=== PATIENT | male | born 1970 | race Caucasian/White ===

== ENCOUNTER 2018-08-10 12:47 | Emergency (ER) | payer OTHER ==
[~2018-08-10] VITALS: Ht 190.5 cm; Wt 113.4 kg
[~2018-08-10 12:47] MED LIST: IBUPROFEN 600600 M1 PO
[2018-08-10] MEDS ORDERED: NABUMETONE 750750 M1 PO (14:29)
[2018-08-10 15:04] VITALS: BP 144/84
== END 2018-08-10 15:05 | disposition home or self-care (01) ==
LOC: M.ERS 12:47
DX: S62.396A Other fracture of fifth metacarpal bone, right hand, initial encounter for closed fracture (principal); X58.XXXA Exposure to other specified factors, initial encounter; Y93.89 Activity, other specified; Y92.89 Other specified places as the place of occurrence of the external cause; Y99.8 Other external cause status